=== PATIENT | male | born 1990 | race Two or more races ===

== ENCOUNTER 2024-09-16 02:21 | Inpatient (IN) | payer MEDICAID ==
[~2024-09-16] VITALS: Ht 165.1 cm; Wt 75.5 kg
--- NOTE | 2024-09-16 02:46 | ED.PDOC ---
History of Present Illness HPI Comments 34-year-old male dropped off by family complaining of a painful mass on his right wrist. Patient appears intoxicated and was unable to provide any coherent history. He was able to state he believed the mass was due to an insect bite. Patient was very somnolent and falling out of the chair at triage. Chief Complaint: Abscess Time Seen by MD: 02:40 Reviewed Notes: Nurses Notes, Medications, Allergies Allergies: Coded Allergies: NO KNOWN ALLERGIES (Unverified , 09/16/24) Information Source: Patient Mode of Arrival: Ambulatory Severity: Moderate Timing: Hours Duration: Since onset Prehospital treatment: None Past Medical History PAST MEDICAL HISTORY: Schizophrenia Past Medical History (Other): polysubstance abuse Surgical History: Unobtainable Family History Family History: Unobtainable Social History Smoker: Other Alcohol: Other Drugs: Other Lives In: Home Unable to Obtain due to: Altered Mental Status (Comprehensive systems review unobtainable due to the patient's somnolence) Physical Exam General Appearance: Other (Appears intoxicated and ill) HEENT: Other (Pupils and face symmetric. Moist mucous membranes.) Neck: Full Range of Motion, Normal Inspection Respiratory: Lungs Clear, No Accessory Muscle Use, No Respiratory Distress, Normal Breath Sounds Cardiovascular: No Edema, No JVD, Tachycardia Breast Exam: Deferred Gastrointestinal: Non Tender, Soft Genitalia: Deferred Pelvic: Deferred Rectal: Deferred Extremities: Other (Right wrist localized erythematous tender indurated mass with purulent drainage) Neurologic: Alert, None (Intermittently agitated, then somnolent), Other (Ambulatory with the assistance) Cerebellar Function: NOT DONE Reflexes: NOT DONE Skin: Dry, Warm, Other (Right wrist approximate 2 x 2 cm mass with purulent discharge and surrounding erythema and edema) Lymphatic: NOT DONE Was a procedure done? Was a procedure done?: No Differential Dx Considerations may include: abscess, cellulitis, dermatitis, polysubstance abuse, sepsis, among others X-Ray, Labs, Meds, VS Vital Signs Date Time Temp Pulse Resp B/P (MAP) Pulse Ox O2 Delivery O2 Flow Rate FiO2 09/16/24 02:40 98.0 133 20 136/58 (84) 98 98.0 Lab Test 09/16/24 03:35 Range/Units White Blood Count 9.1 4.4-10.8 10^3/uL Red Blood Count 4.42 L 4.5-5.90 10^6/uL Hemoglobin 13.6 13.5-17.5 g/dL Hematocrit 40.1 L 41.0-53.0 % Mean Corpuscular Volume 90.8 80.0-100.0 fL Mean Corpuscular Hemoglobin 30.9 28.0-32.0 pg Mean Corpuscular Hemoglobin Concent 34.0 32.0-36.0 g/dL Red Cell Distribution Width 14.2 11.8-14.3 % Platelet Count 344 140-450 10^3/uL Mean Platelet Volume 6.7 L 6.9-10.8 fL Neutrophils (%) (Auto) 65.7 37.0-80.0 % Lymphocytes (%) (Auto) 20.7 10.0-50.0 % Monocytes (%) (Auto) 8.8 0.0-12.0 % Eosinophils (%) (Auto) 4.0 0.0-7.0 % Basophils (%) (Auto) 0.8 0.0-2.0 % Neutrophils # (Auto) 6.0 1.6-8.6 10 ^3/uL Lymphocytes # (Auto) 1.9 0.4-5.4 10 ^3/uL Monocytes # (Auto) 0.8 0-1.3 10 ^3/uL Eosinophils # (Auto) 0.4 0-0.8 10 ^3/uL Basophils # (Auto) 0.1 0-0.2 10 ^3/uL Nucleated Red Blood Cells 0.1 % Sodium Level 140 136-145 mmol/L Potassium Level 3.6 3.5-5.1 mmol/L Chloride Level 105 98-107 mmol/L Carbon Dioxide Level 28 20-31 mmol/L Anion Gap 7 5-15 Blood Urea Nitrogen 11 9-23 mg/dL Creatinine 0.92 0.700-1.30 mg/dL Glomerular Filtration Rate Calc 112 >90 mL/min BUN/Creatinine Ratio 12.0 10.0-20.0 Serum Glucose 114 H 74-106 mg/dL Lactic Acid Level 1.4 0.4-2.0 mmol/L Calcium Level 8.5 L 8.7-10.4 mg/dL Plasma/Serum Blood Alcohol Pending Current Medications Medications (Trade) Dose Ordered Sig/Shruthi Route Start Time Stop Time Status Last Admin Diphtheria/ Tetanus/Acell Pertussis (Boostrix T-Dap) 0.5 ml ONCE ONCE IM 09/16/24 03:00 09/16/24 03:01 DC 09/16/24 03:35 Sodium Chloride 1,850 ml @ 1,850 mls/hr ONCE ONCE IV 09/16/24 03:00 09/16/24 03:59 DC 09/16/24 03:00 Piperacillin Sod/ Tazobactam Sod 100 ml @ 100 mls/hr ONCE ONCE IV 09/16/24 03:00 09/16/24 03:59 DC 09/16/24 05:02 Vancomycin HCl 200 ml @ 200 mls/hr ONCE ONCE IV 09/16/24 03:00 09/16/24 03:59 DC 09/16/24 03:39 PROCEDURE(s): RWRI - R WRIST 3+ VIEW XRAY REASON: abscess r/o fb ORDER NUMBER(s): [id number], ACCESSION NUMBER(s): [id number] EXAM: XY R WRIST 3+ VIEW XRAY HISTORY: abscess r/o fb COMPARISON: None TECHNIQUE: 3 views of the right wrist were performed. FINDINGS: No acute fracture or dislocation are identified about the right wrist. No significant degenerative changes. IMPRESSION: 1. Unremarkable radiographs of the right wrist. No radiopaque foreign body. X-Ray, Labs, Meds, VS Comment 34-year-old male with a history of schizophrenia dropped off by family for evaluation of a right wrist abscess Vitals remarkable for heart rate 133 Exam remarkable for tachycardia, intermittent alternating agitation and lindsey nolence, right wrist approximate 2 x 2 cm abscess with surrounding erythema and purulent discharge Rhythm strip independently interpreted by me: Sinus tach, rate 133, no ectopy. Right wrist x-rays unremarkable CBC, basic metabolic panel and lactic unremarkable Patient treated with the following in the ED: 2 L 0.9 normal saline IV bolus, Tdap 0.5 mL IM, Zosyn 4.5 g IV, vancomycin 1 g IV On re-evaluation, patient is still very somnolent. He was unable to keep his eyes open enough to consent for or cooperate with I and D. Plan is to admit the patient for IV antibiotics and surgical evaluation. Time of 1ST Reevaluation: 03:10 Reevaluation 1ST: Unchanged Patient Education/Counseling: Treatment, Other (need for admission ) Family Education/Counseling: No Family Present Departure 1 Departure Time of Disposition: 05:47 Impression: Primary Impression: Cutaneous abscess of right wrist Additional Impression: Metabolic encephalopathy Disposition: 09 ADMITTED INPATIENT Admit to: Med Surg Condition: Guarded Critical Care Note Critical Care Time?: No Stability Stability form required: No Heart Score Heart Score: Heart Score Response (Comments) Value History N/A 0 EKG N/A 0 Age N/A 0 Risk Factors N/A 0 Troponin N/A 0 Total 0 I personally scribed for IVANA DRUMMOND MD ([email or web address]) on 09/16/24 at 02:46. Electronically submitted by Conor Ewing ([email or web address]). IVANA DRUMMOND MD September 16, 2024 02:46
[2024-09-16] MEDS: SODIUM CHLORIDE 0.9% 1,850 ML IV ONE (03:00)
[2024-09-16] MEDS: TETANUS-DIPTH-ACEL PERTUSSIS 0.5ML SYR Tdap IM ONE (03:35)
[2024-09-16] MEDS: VANCOMYCIN 1GM/200ML PM 200 ML IV ONE (03:39)
--- NOTE | 2024-09-16 03:44 | DVH ---
EXAM: XY R WRIST 3+ VIEW XRAY HISTORY: abscess r/o fb COMPARISON: None TECHNIQUE: 3 views of the right wrist were performed. FINDINGS: No acute fracture or dislocation are identified about the right wrist. No significant degenerative ch anges. IMPRESSION: 1. Unremarkable radiographs of the right wrist. No radiopaque foreign body.
[2024-09-16 04:09] LABS: Basophils # (auto) 0.1 10 ^3/uL (0-0.2); Basophils % (auto) 0.8 % (0.0-2.0); Eosinophils # (auto) 0.4 10 ^3/uL (0-0.8); Hematocrit 40.1 % (41.0-53.0); Hemoglobin 13.6 g/dL (13.5-17.5); Lymphocytes # (auto) 1.9 10 ^3/uL (0.4-5.4); Lymphocytes % (auto) 20.7 % (10.0-50.0); Mean Corpuscular Hemoglobin 30.9 pg (28.0-32.0); Mean Corpuscular Volume 90.8 fL (80.0-100.0); Monocytes # (auto) 0.8 10 ^3/uL (0-1.3); Monocytes % (auto) 8.8 % (0.0-12.0); Neutrophils % (auto) 65.7 % (37.0-80.0); Nucleated Red Blood Cells % 0.1 %; Platelet Count (auto) 344 10^3/uL (140-450); Red Blood Cells 4.42 10^6/uL (4.5-5.90); Red Cell Distribution Width 14.2 % (11.8-14.3); White Blood Cell 9.1 10^3/uL (4.4-10.8)
[2024-09-16 04:12] LABS: Chloride 105 mmol/L (98-107); Potassium 3.6 mmol/L (3.5-5.1); Sodium 140 mmol/L (136-145)
[2024-09-16 04:13] LABS: Anion Gap 7 (5-15); Carbon Dioxide 28 mmol/L (20-31)
[2024-09-16 04:18] LABS: Blood Urea Nitrogen 11 mg/dL (9-23)
[2024-09-16 04:24] LABS: Calcium 8.5 mg/dL (8.7-10.4); Glucose 114 mg/dL (74-106)
[2024-09-16] MEDS: PIPERACILLIN-TAZO 4.5GM 100 ML IV ONE (05:02)
[2024-09-16 07:57] VITALS: PULSE 91; RESP 16; O2SAT 100
--- NOTE | 2024-09-16 07:59 | DVHHP2 ---
History of Present Illness Reason for Visit: Right wrist pain History of Present Illness Lawrence Jaime is a 34-year-old male with past medical history of schizophrenia who presents to the ED with right wrist pain. Patient reports that he has been hitting his arm against some bars and also picking at it. Patient reports that it has been oozing yellow like pus since earlier today. Patient initially stated that it was an insect bite. Patient denies any chest pain, shortness of breath, fever or chills, recent sick contacts, recent travels, recent ingestion of spoiled food, abdominal pain, nausea, vomiting, or diarrhea. Psych: Schizophrenia Past Surgical History: None Family History: None Smoke: <1 pack per day ALCOHOL: occassional Drugs: Marijuana Lives: with Family Domestic Violence: Neg Review of Systems Skin: Other (Erythema and drainage) Allergies: Coded Allergies: NO KNOWN ALLERGIES (Unverified , 09/16/24) Medications Current Medications Medications Dose Ordered Sig/Shruthi Route Start Time Stop Time Status Last Admin Dose Admin Acetaminophen/ Hydrocodone Bitart 1 tab Q4HP PRN PO 09/16/24 08:00 UNV Ondansetron HCl 4 mg Q4HP PRN IV 09/16/24 08:00 UNV Enoxaparin Sodium 40 mg DAILY SC 09/16/24 10:00 UNV Acetaminophen 650 mg Q6HP PRN PO 09/16/24 08:00 UNV Morphine Sulfate 2 mg Q4HPRN PRN IV 09/16/24 08:00 UNV Exam Vital Signs Vital Signs Date Time Temp Pulse Resp B/P (MAP) Pulse Ox O2 Delivery O2 Flow Rate FiO2 09/16/24 02:40 98.0 133 20 136/58 (84) 98 98.0 General Appearance: Alert, Oriented X3, Cooperative, No acute distress HEENT: Atraumatic, PERRLA, EOMI, Mucous membr. moist/pink Respiratory: Clear to auscultation, Normal air movement Cardiovascular: Normal S1, Normal S2, No murmurs Abdominal: Normal bowel sounds, Soft, No tenderness, No hepatospenomegaly, No masses Extremities: No clubbing, No cyanosis, Normal pulses Neuro: Normal gait, Normal speech, Strength at 5/5 X4 ext, Normal tone, Sensation intact Psych/Mental Status: Mental status NL, Mood NL Labs/Xrays Labs Test 09/16/24 03:35 Range/Units White Blood Count 9.1 4.4-10.8 10^3/uL Red Blood Count 4.42 L 4.5-5.90 10^6/uL Hemoglobin 13.6 13.5-17.5 g/dL Hematocrit 40.1 L 41.0-53.0 % Mean Corpuscular Volume 90.8 80.0-100.0 fL Mean Corpuscular Hemoglobin 30.9 28.0-32.0 pg Mean Corpuscular Hemoglobin Concent 34.0 32.0-36.0 g/dL Red Cell Distribution Width 14.2 11.8-14.3 % Platelet Count 344 140-450 10^3/uL Mean Platelet Volume 6.7 L 6.9-10.8 fL Neutrophils (%) (Auto) 65.7 37.0-80.0 % Lymphocytes (%) (Auto) 20.7 10.0-50.0 % Monocytes (%) (Auto) 8.8 0.0-12.0 % Eosinophils (%) (Auto) 4.0 0.0-7.0 % Basophils (%) (Auto) 0.8 0.0-2.0 % Neutrophils # (Auto) 6.0 1.6-8.6 10 ^3/uL Lymphocytes # (Auto) 1.9 0.4-5.4 10 ^3/uL Monocytes # (Auto) 0.8 0-1.3 10 ^3/uL Eosinophils # (Auto) 0.4 0-0.8 10 ^3/uL Basophils # (Auto) 0.1 0-0.2 10 ^3/uL Nucleated Red Blood Cells 0.1 % Sodium Level 140 136-145 mmol/L Potassium Level 3.6 3.5-5.1 mmol/L Chloride Level 105 98-107 mmol/L Carbon Dioxide Level 28 20-31 mmol/L Anion Gap 7 5-15 Blood Urea Nitrogen 11 9-23 mg/dL Creatinine 0.92 0.700-1.30 mg/dL Glomerular Filtration Rate Calc 112 >90 mL/min BUN/Creatinine Ratio 12.0 10.0-20.0 Serum Glucose 114 H 74-106 mg/dL Lactic Acid Level 1.4 0.4-2.0 mmol/L Calcium Level 8.5 L 8.7-10.4 mg/dL Plasma/Serum Blood Alcohol < 3.0 <10 mg/dL EXAM: XY R WRIST 3+ VIEW XRAY HISTORY: abscess r/o fb COMPARISON: None TECHNIQUE: 3 views of the right wrist were performed. FINDINGS: No acute fracture or dislocation are identified about the right wrist. No significant degenerative changes. IMPRESSION: 1. Unremarkable radiographs of the right wrist. No radiopaque foreign body. Assessment/Plan Assessment/Plan Assessment Right wrist pain likely cellulitis versus abscess from an insect bite Tobacco use Alcohol use Marijuana use History of schizophrenia Plan Admit to [facility] IV antibiotics vancomycin + Zosyn Antiemetics Pain management NS 1 L given ED Tdap given ED UDS Blood alcohol noted X-ray right wrist noted Wound culture with Gram stain Blood cultures Lactic level Wound consult CT right wrist Diet DVT prophylaxis-Lovenox PUD prophylaxis-not indicated no history of GERD or GI bleed Discussed plan of care with patient and nurse Counseled patient on cessation of tobacco use, alcohol use, and marijuana use Plan discussed with: Patient My Orders Orders - MATTHEW ACOSTA Procedure Category Date Status Time Admit ADMIT 09/16/24 Transmitted 07:57 Allergies FE 09/16/24 In Process 07:57 Code Status CODE 09/16/24 Transmitted 07:57 Hydrocodone-Acet PHA 09/16/24 Logged 5/325mg Tab ([place] 08:00 Ondansetron Hcl PHA 09/16/24 Logged (Zofran) 08:00 Enoxaparin Sodium PHA 09/16/24 Logged (Lovenox) 10:00 Complete Blood Count LAB 09/17/24 Verified 04:00 Comprehensive LAB 09/17/24 Verified Metabolic Panel 04:00 Cardiac DIET 09/16/24 Transmitted Diet-2gna,Lofat,Lochol Breakfast Acetaminophen Tablet PHA 09/16/24 Logged (Tylenol Tablet) 08:00 Morphine Sulfate PHA 09/16/24 Logged Injection 08:00 * Wound Consult CONS 09/16/24 Transmitted Date of Service: September 16, 2024 Billing Provider: MATTHEW ACOSTA Common Visit Codes: [id number] INP/OBS CARE (HIGH) MATTHEW ACOSTA September 16, 2024 07:59
[2024-09-16] MEDS ORDERED: HYDROcodone-ACET 5/325MG TAB PO PRN (08:00)
[2024-09-16] MEDS ORDERED: ACETAMINOPHEN 325 MG TAB PO PRN (08:00)
[2024-09-16] MEDS ORDERED: MORPHINE SULFATE INJ 2 MG/ml SYRG IV PRN (08:00)
[2024-09-16] MEDS ORDERED: ONDANSETRON HCL 4 MG/2 ML VIAL IV PRN (08:00)
[2024-09-16] MEDS ORDERED: VANCOMYCIN PER PHARMACY 0 MG IV SCH (08:00)
[2024-09-16] MEDS: ENOXAPARIN SOD 40 MG/0.4 ML SYRINGE SC SCH (10:13)
[2024-09-16 11:11] VITALS: BP 110/69; PULSE 73; RESP 16; TEMP 97.5; O2SAT 96
--- NOTE | 2024-09-16 12:02 | DVH ---
CLINICAL INDICATION: right wrist swelling TECHNIQUE: Noncontrast CT of the right wrist was performed. Sagittal and coronal reformatted images a re provided. COMPARISON: None CT Dose: CTDI volume is 7.75 mGy. Dose-length product is 174.11 mGy*cm FINDINGS: No fracture or dislocation. Alignment is maintained. There is dorsal soft tissue swelling. There is a 1.8 cm mass along the radial aspect of the wrist. IMPRESSION: 1. No fracture or dislocation. 2. 1.8 cm mass along the radial aspect of the wrist. MRI of the right wrist without and with intrave nous contrast is suggested. Soft tissue swelling may reflect cellulitis. All CT scans at this medical facility are performed using dose modulation techniques as appropriate t o a performed exam including the following: Automated exposure control was utilized; adjustment of th e MA and/or KV according to patient size; and use of iterative reconstruction technique.
[2024-09-16 13:00] VITALS: BP 114/75; PULSE 77; RESP 18; TEMP 97.9; O2SAT 96
[2024-09-16 13:00] LABS: Amphetamine Screen, Urine Pos (NEGATIVE); Barbiturate Scree,Urine Neg (NEGATIVE); Benzodiazephine Screen, Urine Neg (NEGATIVE); Cannabinoid Screen, Urine Pos (NEGATIVE); Cocaine Screen, Urine Neg (NEGATIVE); Opiate Scree,Urine Neg (NEGATIVE); Phencyclidine Screen, Urine Neg (NEGATIVE)
--- NOTE | 2024-09-16 15:04 | DVHPN2 ---
Subjective 34 year old male with h/o drug abuse comes with right wrist swelling and discharge x few days Changes from previous H/P or p: Changes Skin: Other (Erythema and drainage) Objective Vitals Vital Signs Date Time Temp Pulse Resp B/P (MAP) Pulse Ox O2 Delivery O2 Flow Rate FiO2 09/16/24 10:00 97.8 87 14 124/78 (93) 99 97.8 09/16/24 07:57 Room Air* 0 21 General Appearance: Alert, Oriented X3, Cooperative Lungs: Clear to auscultation, Normal air movement Cardiovascular: Regular rate, Normal S1, Normal S2 Abdomen: Normal bowel sounds, Soft, No tenderness Extremities: No edema Medications Current Medications Medications Dose Ordered Sig/Shruthi Route Start Time Stop Time Status Last Admin Dose Admin Acetaminophen/ Hydrocodone Bitart 1 tab Q4HP PRN PO 09/16/24 08:00 Ondansetron HCl 4 mg Q4HP PRN IV 09/16/24 08:00 Enoxaparin Sodium 40 mg DAILY SC 09/16/24 10:00 09/16/24 10:13 40 MG Acetaminophen 650 mg Q6HP PRN PO 09/16/24 08:00 Morphine Sulfate 2 mg Q4HPRN PRN IV 09/16/24 08:00 Vancomycin HCl 0 ml @ 0 mls/hr UD IV 09/16/24 08:00 UNV Piperacillin Sod/ Tazobactam Sod 100 ml @ 25 mls/hr Q8HR IV 09/16/24 14:00 Laboratory Results Laboratory Tests 09/16/24 03:35 Chemistry Test 09/16/24 03:35 Calcium Level 8.5 mg/dL (8.7-10.4) L Assessment/Plan Assessment/Plan Right wrist cellulitis with abscess IV drug use Schizophrenia PLAN: IV antibiotics Vanco and Zosyn Ortho consult Right wrist wound culture sent Plan discussed with: Patient My Orders Orders - FERNANDO OMALLEY MD Procedure Category Date Status Time * Orthopedic Consult CONS 09/16/24 Verified 14:56 Date of Service: September 16, 2024 Billing Provider: FERNANDO OMALLEY MD Common Visit Codes: [id number] INP/OBS CARE(HIGH) FERNANDO OMALLEY MD September 16, 2024 15:04
[2024-09-16] MEDS: PIPERACILLIN-TAZOB 3.375GM 100 ML IV SCH (15:56)
[2024-09-16 17:00] VITALS: BP 117/73; PULSE 88; RESP 19; TEMP 97.3; O2SAT 100
[2024-09-16] MEDS: VANCOMYCIN 750mg/150ml 150 ML IV SCH (18:16)
[2024-09-16 20:00] VITALS: PULSE 89; RESP 16; O2SAT 94
--- NOTE | 2024-09-16 20:12 | DVHINCON2 ---
Consult Note Consult Consult Note Orthopedic Consult Note Requesting Provider: Primary Team Reason for Consult: Evaluation and management of right dorsal forearm ulcer with suspected soft tissue infection and underlying abscess --- HISTORY OF PRESENT ILLNESS: The patient is a 34-year-old male admitted as an inpatient with a 4-day history of a progressively worsening ulcerative lesion over the right dorsal forearm. The patient describes the lesion as starting with localized redness and swelling, which over four days progressed to a 3 cm x 3 cm area of skin and subcutaneous tissue breakdown, now with surrounding erythema and discharge. The patient is uncertain of the initial cause but admits to intravenous drug use. He reports tenderness and discomfort over the affected site but denies systemic symptoms such as fever or chills. No known trauma. --- PAST MEDICAL HISTORY: IV drug use No known diabetes, immunosuppression, or chronic infections --- EXAMINATION: General: Alert, oriented, resting in no acute distress Right Upper Extremity: Location: Dorsal right forearm, distal third Size: Approximately 3 cm x 3 cm ulcerated lesion with some loss of skin/epidermal layer, TTP Discharge: Underlying abscess with drainage of purulent material on manipulation, with overlying cellulitis Erythema: Significant surrounding erythema and induration Neurovascular: Intact distal pulses and capillary refill Motor/Sensory: Full active ROM at elbow and wrist; sensation intact No fluctuance or crepitus at this time --- IMAGING: X-ray and CT Forearm: Soft tissue mass measuring ~1.8 cm over dorsal distal forearm with overlying cellulitis; no obvious bony involvement or gas formation MRI STAT: Ordered to assess for deeper extension into muscle, tendon, or bone BEFORE 8 TOMMOROW MORNING --- LABS: CBC REVIEWED WBC OF 9.1 TODAY CBC, ESR, CRP ordered for trending Wound cultures obtained Patient currently receiving IV antibiotics Awaiting imaging and lab results --- PLAN: REVIEW MRI (ORDERED STAT TODAY AND ADVISED IT TO BE COMPLETED TO BEDSIDE NURSE FOR EVAL BEFORE SURGICAL I&D) Proceed with incision and debridement (I&D) of right dorsal forearm lesion at 11:00 AM tomorrow NPO after midnight Consent for I&D to be obtained today by bedside RN Continue IV antibiotics per ID recommendation Monitor for systemic signs of infection or sepsis MRI pending to rule out extension to deep structures Surgical team to reassess post-MRI and pre-op Pain control as needed with hospitalist Coordinate with primary team for wound care and follow-up planning --- ASSESSMENT/IMPRESSION: 34-year-old male with IV drug use presenting with a 4-day evolving right dorsal forearm soft tissue lesion with underlying abscess and purulent discharge on manipulation, surrounded by cellulitis. No gross evidence of deep tissue or bony involvement on X-ray/CT. MRI pending. Suspected soft tissue abscess with early necrotizing potential. Plan for operative debridement. --- Plan discussed with: Patient, Other (bedside Nurse) Visit Coding Surgery Date of Service if different f: September 16, 2024 Billing Provider: DEXTER WONG Surgery Visit Codes: [id number] - INP CONSULT <40 MIN DEXTER WONG September 16, 2024 20:12
[2024-09-16 20:54] LABS: Basophils # (auto) 0 10 ^3/uL (0-0.2); Basophils % (auto) 0.2 % (0.0-2.0); Eosinophils # (auto) 0.3 10 ^3/uL (0-0.8); Eosinophils % (auto) 5.1 % (0.0-7.0); Hematocrit 39.6 % (41.0-53.0); Hemoglobin 13.7 g/dL (13.5-17.5); Lymphocytes # (auto) 1.3 10 ^3/uL (0.4-5.4); Lymphocytes % (auto) 19.7 % (10.0-50.0); Mean Corpuscular Hemoglobin 31.4 pg (28.0-32.0); Mean Corpuscular Hgb Conc. 34.7 g/dL (32.0-36.0); Mean Corpuscular Volume 90.6 fL (80.0-100.0); Monocytes # (auto) 0.2 10 ^3/uL (0-1.3); Monocytes % (auto) 3.5 % (0.0-12.0); Neutrophils # (auto) 4.7 10 ^3/uL (1.6-8.6); Neutrophils % (auto) 71.5 % (37.0-80.0); Nucleated Red Blood Cells % 0.2 %; Platelet Count (auto) 314 10^3/uL (140-450); Red Blood Cells 4.37 10^6/uL (4.5-5.90); Red Cell Distribution Width 13.9 % (11.8-14.3); White Blood Cell 6.6 10^3/uL (4.4-10.8)
[2024-09-16 21:00] VITALS: BP 117/69; PULSE 89; RESP 16; TEMP 98.9; O2SAT 94
[2024-09-16 21:44] LABS: Erythrocyte Sedimentation Rate 5 mm/hr (0-20)
[2024-09-17 01:00] VITALS: BP 129/85; PULSE 101; RESP 16; TEMP 96.7; O2SAT 97
[2024-09-17 05:00] VITALS: BP 96/59; PULSE 75; RESP 16; TEMP 97.3; O2SAT 99
[2024-09-17 06:13] LABS: Basophils # (auto) 0 10 ^3/uL (0-0.2); Basophils % (auto) 0.3 % (0.0-2.0); Eosinophils # (auto) 0.3 10 ^3/uL (0-0.8); Eosinophils % (auto) 6.5 % (0.0-7.0); Hemoglobin 14.1 g/dL (13.5-17.5); Mean Corpuscular Hemoglobin 31.2 pg (28.0-32.0); Mean Corpuscular Hgb Conc. 34.4 g/dL (32.0-36.0); Mean Corpuscular Volume 90.8 fL (80.0-100.0); Monocytes # (auto) 0.2 10 ^3/uL (0-1.3); Monocytes % (auto) 4.1 % (0.0-12.0); Neutrophils # (auto) 3.7 10 ^3/uL (1.6-8.6); Neutrophils % (auto) 70.1 % (37.0-80.0); Nucleated Red Blood Cells % 0.1 %; Platelet Count (auto) 318 10^3/uL (140-450); Red Blood Cells 4.52 10^6/uL (4.5-5.90); Red Cell Distribution Width 13.9 % (11.8-14.3); White Blood Cell 5.2 10^3/uL (4.4-10.8)
[2024-09-17 06:19] LABS: INR 0.95 (0.9-1.15); Prothrombin Time 10.1 sec (9.3-11.8)
[2024-09-17 06:27] LABS: Alanine Aminotransferase 15 U/L (7-40); Albumin 3.8 g/dL (3.2-4.8); Alkaline Phosphatase 95 U/L (46-116); Anion Gap 5 (5-15); BUN/Creatinine Ratio 10.6 (10.0-20.0); Blood Urea Nitrogen 11 mg/dL (9-23); Calcium 8.7 mg/dL (8.7-10.4); Carbon Dioxide 30 mmol/L (20-31); Chloride 102 mmol/L (98-107); Potassium 4.2 mmol/L (3.5-5.1); Sodium 137 mmol/L (136-145); Total Protein 5.8 g/dL (5.7-8.2)
[2024-09-17 06:28] LABS: Bilirubin, Total 0.4 mg/dL (0.2-1.0)
[2024-09-17 06:35] LABS: Aspartate Aminotransferase 12 U/L (13-40); Glucose 106 mg/dL (74-106)
[2024-09-17] MEDS ORDERED: GADOTERATE MEG 10 MMOL/20ml INJ (0.5MMOL/ml) IV ONE (07:01)
--- NOTE | 2024-09-17 09:10 | DVH ---
XY CHEST TWO VIEWS ROUTINE, HISTORY: procedure COMPARISON: None None TECHNICAL DATA: 2 view of the chest was obtained. FINDINGS: Lines and tubes: None Cardiomediastinal silhouette: normal Pulmonary vasculature: normal Lung expansion: normal Lung airspace: normal Lung interstitium: normal Pleura: normal Pneumothorax: no Bones: Unremarkable Other: no IMPRESSION: No acute intrathoracic abnormality.
--- NOTE | 2024-09-17 09:16 | DVH ---
CLINICAL INFORMATION: 34 years old, Male; ABCESS RT WRIST. COMPARISON: CT CT R WRIST WO CONTRAST on DOS: 09/16/24. Radiographs dated 09/16/2024. TECHNIQUE: Multisequence multiplanar MRI images of the right wrist were obtained without contrast. FINDINGS: There is diffuse subcutaneous edema, most prominent of the dorsal aspect of the wrist and adjacent po rtions of the distal forearm and hand. More focal area of edematous tissue of the dorsal radial aspec t of the distal forearm measuring up to 1.7 x 1.1 x 2.8 cm, not well evaluated without IV contrast. T he structure extends to the skin surface and involves the underlying subcutaneous tissues. Osseous st ructures are intact without evidence of acute fracture or focal marrow contusion. No suspicious osseo us abnormality identified. Visualized tendons are intact with no significant tendinosis or tenosynovi tis visualized. Normal appearance of the visualized musculature. No significant abnormality identifie d in the TFCC, DRUJ, carpal tunnel, or other wrist structures. No ligamentous tear identified. IMPRESSION: 1. Prominent subcutaneous edema around the wrist, most prominent dorsally and also involving adjacent portions of the distal forearm and dorsal aspect of the hand. Possible cellulitis in the appropriate clinical setting. 2. More focal area of edematous tissue along the dorsal radial aspect of the distal forearm, not well evaluated on noncontrast enhanced exam. Differential considerations would include abscess or phlegm on in the setting of overlying soft tissue infection. Neoplasm would be less likely but not completel y excluded in the appropriate clinical setting.
[2024-09-17 09:30] VITALS: BP 103/67; PULSE 71; RESP 16; TEMP 97.8; O2SAT 99
--- NOTE | 2024-09-17 12:58 | DVHPN2 ---
Progress Note - Dictate Date Seen: September 17, 2024 Medical Necessity Reason Pt with a Central, PICC or Fol: No Subjective Patient scheduled for surgery today but ate roomates lunch vital signs Vital Sign Date Time Temp Pulse Resp B/P (MAP) Pulse Ox O2 Delivery O2 Flow Rate FiO2 09/17/24 09:30 97.8 71 16 103/67 (79) 99 97.8 09/16/24 20:00 Room Air* 0 21 Total Intake and Output 09/16/24 09/16/24 09/17/24 15:00 23:00 07:00 Intake Total 2150 ml 900 ml 400 ml Output Total 1 ml Balance 2150 ml 899 ml 400 ml medications Current Medications Medications Dose Ordered Sig/Shruthi Route Start Time Stop Time Status Last Admin Dose Admin Acetaminophen/ Hydrocodone Bitart 1 tab Q4HP PRN PO 09/16/24 08:00 Ondansetron HCl 4 mg Q4HP PRN IV 09/16/24 08:00 Enoxaparin Sodium 40 mg DAILY SC 09/16/24 10:00 09/16/24 10:13 40 MG Acetaminophen 650 mg Q6HP PRN PO 09/16/24 08:00 Morphine Sulfate 2 mg Q4HPRN PRN IV 09/16/24 08:00 Vancomycin HCl 0 ml @ 0 mls/hr UD IV 09/16/24 08:00 Piperacillin Sod/ Tazobactam Sod 100 ml @ 25 mls/hr Q8HR IV 09/16/24 14:00 09/17/24 06:32 25 MLS/HR Vancomycin HCl 150 ml @ 150 mls/hr Q8H IV 09/16/24 18:00 09/17/24 10:25 150 MLS/HR laboratory and microbiology Laboratory Tests 09/17/24 05:29 Test 09/17/24 05:29 Range/Units Serum Glucose 106 74-106 mg/dL Problem List Right wrist abscess Assessment/Plan Plan for irrigation and debridement of right wrist- patient scheduled for 09/17 however he took his roommates lunch so case is cancelled for today; will reschedule for 09/18 Plan discussed with: Patient PRIETO GONZALES MD September 17, 2024 12:58
[2024-09-17 13:30] VITALS: BP 99/63; PULSE 80; RESP 17; TEMP 97.5; O2SAT 100
[2024-09-17 16:30] VITALS: BP 107/67; PULSE 94; RESP 18; TEMP 97.8; O2SAT 100
--- NOTE | 2024-09-17 22:41 | DVHDS2 ---
Discharge Summary Date of Admission September 16, 2024 at 07:57 Date of Discharge: September 17, 2024 Labs/Diagnostic Data: Laboratory Results Test 09/17/24 17:08 09/17/24 05:29 09/16/24 20:33 09/16/24 03:35 Vancomycin Level Trough 14.0 ug/mL (5-10) White Blood Count 5.2 10^3/uL (4.4-10.8) Red Blood Count 4.52 10^6/uL (4.5-5.90) Hemoglobin 14.1 g/dL (13.5-17.5) Hematocrit 41.0 % (41.0-53.0) Mean Corpuscular Volume 90.8 fL (80.0-100.0) Mean Corpuscular Hemoglobin 31.2 pg (28.0-32.0) Mean Corpuscular Hemoglobin Concent 34.4 g/dL (32.0-36.0) Red Cell Distribution Width 13.9 % (11.8-14.3) Platelet Count 318 10^3/uL (140-450) Mean Platelet Volume 6.6 fL (6.9-10.8) Neutrophils (%) (Auto) 70.1 % (37.0-80.0) Lymphocytes (%) (Auto) 19.0 % (10.0-50.0) Monocytes (%) (Auto) 4.1 % (0.0-12.0) Eosinophils (%) (Auto) 6.5 % (0.0-7.0) Basophils (%) (Auto) 0.3 % (0.0-2.0) Neutrophils # (Auto) 3.7 10 ^3/uL (1.6-8.6) Lymphocytes # (Auto) 1.0 10 ^3/uL (0.4-5.4) Monocytes # (Auto) 0.2 10 ^3/uL (0-1.3) Eosinophils # (Auto) 0.3 10 ^3/uL (0-0.8) Basophils # (Auto) 0 10 ^3/uL (0-0.2) Nucleated Red Blood Cells 0.1 % Prothrombin Time 10.1 sec (9.3-11.8) Prothrombin Time INR 0.95 (0.9-1.15) Activated Partial Thromboplast Time 28.0 SEC (24.5-34.5) Sodium Level 137 mmol/L (136-145) Potassium Level 4.2 mmol/L (3.5-5.1) Chloride Level 102 mmol/L (98-107) Carbon Dioxide Level 30 mmol/L (20-31) Anion Gap 5 (5-15) Blood Urea Nitrogen 11 mg/dL (9-23) Creatinine 1.04 mg/dL (0.700-1.30) Glomerular Filtration Rate Calc 97 mL/min (>90) BUN/Creatinine Ratio 10.6 (10.0-20.0) Serum Glucose 106 mg/dL (74-106) Calcium Level 8.7 mg/dL (8.7-10.4) Total Bilirubin 0.4 mg/dL (0.2-1.0) Aspartate Amino Transferase (AST) 12 U/L (13-40) Alanine Aminotransferase (ALT) 15 U/L (7-40) Alkaline Phosphatase 95 U/L (46-116) Total Protein 5.8 g/dL (5.7-8.2) Albumin 3.8 g/dL (3.2-4.8) Erythrocyte Sedimentation Rate 5 mm/hr (0-20) C-Reactive Protein High Sensitivity 0.83 mg/dL (<1.0) Lactic Acid Level 1.4 mmol/L (0.4-2.0) Plasma/Serum Blood Alcohol < 3.0 mg/dL (<10) Test 09/16/24 00:00 Urine Opiates Screen Neg (NEGATIVE) Urine Fentanyl Screen Neg (NEGATIVE) Urine Barbiturates Screen Neg (NEGATIVE) Urine Phencyclidine Screen Neg (NEGATIVE) Urine Amphetamines Screen Pos (NEGATIVE) Urine Benzodiazepines Screen Neg (NEGATIVE) Urine Cocaine Screen Neg (NEGATIVE) Urine Cannabinoids Screen Pos (NEGATIVE) Other Laboratory Tests 09/17/24 05:29 Brief Hx & Hospital Course: Final diagnoses: Right wrist cellulitis with abscess IV drug use Schizophrenia 34-year-old male who was admitted because of swelling and discharge in his right wrist area, upon examination he had purulent discharge from the lateral area of his right wrist which indicated an abscess Orthopedic surgery was called in for consultation and he was seen and was recommended to have surgery but apparently earlier today he ate the food from his roommate and therefore the surgery was canceled and was going to be scheduled for tomorrow again however he left AMA. Condition at Discharge: Undetermined Final Diagnosis/Problems List Right wrist cellulitis with abscess IV drug use Schizophrenia Discharge Disposition: AMA SNF Discharge Will this Physician continue t: No Discharge Statement: "Patient was advised to return to the ER or call 911 if any headaches, dizziness, shortness of breath, chest pain, abdominal pain, bleeding, fevers, or worsening of medical condition. Patient was counseled about treatment plan, medications, possible side effects, patientverbalized understanding. All questions were answered to the best of my ability. This discharge took greater then 30 minutes in planning, reviewing documentation, counseling the patient, and discussing with other team members." ASSESSMENT ASSESSMENT Assessment Date of Service: September 17, 2024 Billing Provider: FERNANDO OMALLEY MD Common Visit Codes: 65149-PYZ/OBS DISCH DAY >30min FERNANDO OMALLEY MD September 17, 2024 22:41
== END 2024-09-17 17:50 | disposition left against medical advice (07) | DRG 383 ==
LOC: ER 02:28 → EDBD 02:28 → OVERFLOW 07:57 → EAST 11:20
PROVIDERS: ADMIT Internal Medicine Geriatric Medicine; ATTEND Internal Medicine Geriatric Medicine
DX: L03.113 Cellulitis of right upper limb (principal); F10.90 Alcohol use, unspecified, uncomplicated; F20.9 Schizophrenia, unspecified; L02.413 Cutaneous abscess of right upper limb; Z53.29 Procedure and treatment not carried out because of patient's decision for other reasons; F12.90 Cannabis use, unspecified, uncomplicated; Z23 Encounter for immunization; Z72.0 Tobacco use; Z71.6 Tobacco abuse counseling; Z71.41 Alcohol abuse counseling and surveillance of alcoholic
CPT/HCPCS: 36415; 71046; 73110; 73200; 73221; 80048; 80053; 80202; 80307; 80320; 83605; 85025; 85610; 85652; 85730; 86141; 86850; 86900; 86901; 87040; 87077; 87186; 87205; 90471; 90715; 96365; G0378; J2543

== ENCOUNTER 2024-09-26 11:27 | Emergency (ER) | payer MEDICAID ==
[~2024-09-26] VITALS: Ht 167.6 cm; Wt 62.6 kg
--- NOTE | 2024-09-26 11:44 | ED.PDOC ---
Musculoskeletal HPI Comments 34 year old male presents to the ED with a chief complaint of RT wrist wound check onset today (09/26/24). Patient states he was admitted at [facility] for wound care, came to ED due to concern wound is worsening. Patient left AMA on 09/17/24. PMHx schizophrenia. Denies chest pain, shortness of breath, dizziness, nausea, vomiting, fever, chills. No other symptoms or modifying factors present at this time. Time Seen by MD: 11:35 Reviewed Notes: Medications, Allergies Allergies: Coded Allergies: NO KNOWN ALLERGIES (Unverified , 09/16/24) Information Source: Patient Mode of Arrival: Ambulatory Location: Right Extremity Location: Wrist Timing: Weeks Prehospital treatment: None Severity: Moderate Able to Move Extremity: Yes Bear Weight: Fully Pain: Moderate Mechanism: Spontaneous Circumstances: Preceding Wound Onset of Symptoms: Spontaneous Symptoms: Swelling, Pain Associated signs and symptoms: Wrist pain Past Medical History PAST MEDICAL HISTORY: Schizophrenia Surgical History: Unobtainable Family History Family History: Unobtainable Social History Smoker: Cigarettes, Other Alcohol: Heavy, Other Drugs: Marijuana, Other Lives In: Home Constitutional: denies: chills, diaphoresis, fatigue, fever, malaise, sweats, weakness, others EENTM: denies: blurred vision, double vision, ear bleeding, ear discharge, ear drainage, ear pain, ear ringing, eye pain, eye redness, hearing loss, mouth pain, mouth swelling, nasal discharge, nose bleeding, nose congestion, nose pain, photophobia, tearing, throat pain, throat swelling, voice changes, others Respiratory: denies: cough, hemoptysis, orthopnea, SOB at rest, shortness of breath, SOB with excertion, stridor, wheezing, others Cardiovascular: denies: chest pain, dizzy spells, diaphoresis, Dyspnea on exertion, edema, irregular heart beat, left arm pain, lightheadedness, palpitations, PND, syncope, others Gastrointestinal: denies: abdomen distended, abdominal pain, blood streaked bowels, constipated, diarrhea, dysphagia, difficulty swallowing, hematemesis, melena, nausea, poor appetite, poor fluid intake, rectal bleeding, rectal pain, vomiting, others Genitourinary: denies: burning, dysuria, flank pain, frequency, hematuria, incontinence, penile discharge, penile sore, pain, testicle pain, testicle swelling, urgency, others Neurological: denies: dizziness, fainting, headache, left sided numbness, left sided weakness, numbness, paresthesia, pre-existing deficit, right sided numbness, right sided weakness, seizure, speech problems, tingling, tremors, weakness, others Musculoskeletal: reports: others (RT wrist wound); denies: back pain, gout, joint pain, joint swelling, muscle pain, muscle stiffness, neck pain Integumetry: denies: bruises, change in color, change in hair/nails, dryness, laceration, lesions, lumps, rash, wounds, others Allergic/Immunocompromised: denies: Difficulty Healing, Frequent Infections, Hives, Itching, others Hematologic/Lymphatic: denies: anemia, blood clots, easy bleeding, easy bruising, swollen glands, others Endocrine: denies: excessive hunger, excessive sweating, excessive thirst, excessive urination, flushing, intolerance to cold, intolerance to heat, unexplained weight gain, unexplained weight loss, others Psychiatric: denies: anxiety, bipolar disorder, depression, hopeless, panic disorder, schizophrenia, sleepless, suicidal, others All Other Systems: Reviewed and Negative Physical Exam General Appearance: No Apparent Distress, Normal HEENT: Normal ENT Inspection, Pharynx Normal, TMs Normal Neck: Full Range of Motion, Non-Tender, Normal, Normal Inspection Respiratory: Chest Non-Tender, Lungs Clear, No Accessory Muscle Use, No Respiratory Distress, Normal Breath Sounds Cardiovascular: No Edema, No JVD, No Murmur, No Gallop, Normal Peripheral Pulses, Regular Rate/Rhythm Breast Exam: Deferred Gastrointestinal: No Organomegaly, Non Tender, No Pulsatile Mass, Normal Bowel Sounds, Soft Genitalia: Deferred Pelvic: Deferred Rectal: Deferred Extremities: No pedal edema Musculoskeletal : Location: Right Extremity Location: Wrist (dry scab noted over RT distal dorsal aspect, no swelling or redness, streaks, discahrge noted) Apperance: Normal Neurologic: Alert, link assembler II-XII nml as Tested, No Motor Deficits, Normal Affect, Normal Mood, No Sensory Deficits Cerebellar Function: Normal Reflexes: Normal Skin: Dry, Normal Color, Warm Lymphatic: No Adenopathy Was a procedure done? Was a procedure done?: No Differential Diagnosis EXT Differential Diagnosis: Cellulitis, Contusion, Strain, Arthritis, Bursitis, Other (abscess, gangleon cyst) X-Ray, Labs, Meds, VS Vital Signs Date Time Temp Pulse Resp B/P (MAP) Pulse Ox O2 Delivery O2 Flow Rate FiO2 09/26/24 12:10 98.1 104 18 135/90 (105) 96 98.1 Time of 1ST Reevaluation: 12:05 Reevaluation 1ST: Unchanged Patient Education/Counseling: Diagnosis, Treatment, Prognosis, Need For Follow Up Family Education/Counseling: No Family Present Additional Information pt 's hand lesion appears much improved compared to the description from his last admission. other than some soft tissue prominence, which is consistent with scarring, there is no fluctuance, no redness, no discharge. the eschar over it is dry. pt is concerned about an infection. since there is still swelling, i will start him on keflex Departure 1 Departure Time of Disposition: 12:20 Impression: Primary Impression: Wound check, abscess Disposition: 01 HOME / SELF CARE / HOMELESS Condition: Good e-Prescriptions Cephalexin Monohydrate (Cephalexin) 500 Mg Tab 1 TAB PO QID, #40 TAB Prov: SCAR ADORNO MD 09/26/24 Discharged With: Self Critical Care Note Critical Care Time?: No Stability Stability form required: No I personally scribed for SCAR ADORNO MD ([email or web address]) on 09/26/24 at 11:44. Electronically submitted by Mary Oscar ([email or web address]). SCAR ADORNO MD September 26, 2024 11:44
[2024-09-26 12:10] VITALS: BP 135/90; PULSE 104; RESP 18; TEMP 98.1; O2SAT 96
[2024-09-26] MEDS ORDERED: CEPH500T PO (12:21)
== END 2024-09-26 14:52 | disposition home or self-care (01) ==
LOC: ER 11:43
DX: Z48.817 Encounter for surgical aftercare following surgery on the skin and subcutaneous tissue (principal); F20.9 Schizophrenia, unspecified; F17.210 Nicotine dependence, cigarettes, uncomplicated